=== PATIENT | male | born 1965 | race Caucasian/White ===

== ENCOUNTER 2023-02-19 07:21 | Day surgery (SDC) | payer BC ==
[2023-02-18 09:24] LABS: Potassium 3.9 mEq/L (3.5-5.1)
--- NOTE | 2023-02-18 13:36 | EKG ---
Test Date: 2023-02-18 Test Time: 08:51:13 Bit Setter: BALDO MEASUREMENT RESULTS: Intervals: Rate: 66 OR: 234 QRSD: 96 QT: 402 QTc: 421 [place]: P: 31 OR: 234 QRS: 117 T: 24 INTERPRETIVE STATEMENTS: Sinus rhythm with 1st degree AV block Low voltage QRS Incomplete right bundle branch block Left posterior fascicular block Abnormal ECG Compared to ECG 12/09/2016 17:57:30 Incomplete right bundle-branch block now present Left posterior fascicular block now present Right-axis deviation no longer present T-wave abnormality no longer present Electronically Signed On 02-18-23 13:35:23 CDT by Zachery Rizzo
[2023-02-19] MEDS ORDERED: NA CHLORIDE 0.9% 1,000 ML ONE (07:48)
[2023-02-19] MEDS ORDERED: propofoL 200 MG/20 ML VIAL IV ONE ×2 (07:56→07:57)
[2023-02-19] MEDS ORDERED: GLYCOPYRROLATE 0.2 MG/ML SYR ONE (07:57)
[2023-02-19] MEDS ORDERED: LIDOCAINE 1% MPF 30 ML VIAL ONE (07:57)
[2023-02-19 08:04] VITALS: TEMP 98.3
[2023-02-19 10:43] VITALS: BP 130/77; O2SAT 97
== END 2023-02-19 09:10 | disposition home or self-care (01) ==
LOC: OR 07:21
PROVIDERS: ATTEND Surgery
PROC: 0DBN8ZX Excision of Sigmoid Colon, Via Natural or Artificial Opening Endoscopic, Diagnostic (ICD-10-PCS; 2023-02-19)
PROC: 0DBM8ZX Excision of Descending Colon, Via Natural or Artificial Opening Endoscopic, Diagnostic (ICD-10-PCS; principal; 2023-02-19 09:00)
DX: Z12.11 Encounter for screening for malignant neoplasm of colon (principal); N42.9 Disorder of prostate, unspecified; K57.30 Diverticulosis of large intestine without perforation or abscess without bleeding; K64.8 Other hemorrhoids; D12.4 Benign neoplasm of descending colon; D12.5 Benign neoplasm of sigmoid colon
CPT/HCPCS: 45385; 93005; 80048; 36415; 82947; 88305 ×2; J2704 ×2; J2001; J7030

== ENCOUNTER 2024-03-26 05:47 | Emergency (ER) | payer BC ==
[2024-03-26] MEDS ORDERED: MORPHINE 4 MG/ML SYR ONE (06:30)
[2024-03-26] MEDS ORDERED: ONDANSETRON 4 MG/2 ML VIAL ONE (06:30)
[2024-03-26] MEDS ORDERED: NA CHLORIDE 0.9% 1,000 ML ONE (06:30)
[2024-03-26 06:40] LABS: Specific Gravity > 1.030 (1.005-1.030); Sqamous Epithelial <5 /HPF (None Seen); Urine Bacteria None Seen /HPF (<20); Urine Bilirubin NEGATIVE (Negative); Urine Blood 2+ (Negative); Urine Clarity Clear (Clear); Urine Color Light-Yellow (Yellow); Urine Culture Reflex Order NOT NEEDED; Urine Glucose 4+ (Over) (Negative); Urine Ketones NEGATIVE (Negative); Urine Microscopic Reflex YN ORDER UMIC; Urine Nitrite NEGATIVE (Negative); Urine Protein NEGATIVE (Negative); Urine Urobilinogen Normal (Normal); Urine WBC <5 /HPF (<5)
[2024-03-26 06:42] LABS: Absolute Eosinophils 0.1 K/uL (0-0.5); Absolute Lymphocytes (CBC) 1.5 K/uL (0.7-4.9); Absolute Monocytes 0.7 K/uL (0.1-1.3); Absolute Neutrophil 4.2 K/uL (1.8-8.0); Basophils % 0.4 % (0-1.3); Eosinophils % 2.1 % (0-4.4); Hematocrit 44.9 % (39.6-49.0); Hemoglobin 15.5 g/dL (13.6-17.9); Lymphocytes % 22.8 % (15.3-44.8); MCH 31.8 pg (27.0-35.0); MCHC 34.7 g/dL (32.0-36.0); MCV 91.7 fL (80-100); MPV 6.8 fL (7.6-11.3); Monocytes % 10.2 % (3.3-12.3); Neutrophils % 64.5 % (41.7-73.7); Nucleated Red Blood Cells % 0.1 % (0-0); Platelets 213 thou/uL (152-406); RBC Red Blood Cell Count 4.89 M/uL (4.33-5.43); Red Cell Distribution Width 14.3 % (12.1-15.2)
[2024-03-26 06:58] LABS: Albumin 3.8 g/dL (3.4-5.0); Anion Gap 11.6 mEq/L (5.0-15.0); Bilirubin Total 0.5 mg/dL (0.2-1.0); Potassium 3.6 mEq/L (3.5-5.1); Protein, Total 7.8 g/dL (6.4-8.2)
--- NOTE | 2024-03-26 07:21 | RAD REPORT ---
EXAMINATION: CT ABDOMEN AND PELVIS WITHOUT CONTRAST CLINICAL INDICATION: FLANK PAIN TECHNIQUE: CT abdomen and pelvis was performed, without IV contrast, as per department protocol. Axia l, sagittal and coronal reconstructions were obtained. One or more of the following dose reduction techniques were used: Automated exposure control, adjustment of the mA and kV according to the patien t size, and iterative reconstruction. Unless otherwise specified, incidental findings do not require dedicated imaging follow-up. COMPARISON: 12/09/2016 FINDINGS: The lack of intravenous contrast limits the sensitivity of this exam for evaluation of solid visceral organs, vascular structures, and retroperitoneum. LOWER CHEST: The visualized lung bases are clear. LIVER:Normal in size and contour. No focal lesion. Grossly unremarkable gallbladder. SPLEEN: Normal size. No focal lesion. PANCREAS: No mass, ductal dilation, or naida-pancreatic fluid. ADRENALS: Normal; no mass. KIDNEYS AND URETERS: 3 mm stone is present right UVJ resulting in mild right hydronephrosis. Addition al small calyceal calculi bilaterally. URINARY BLADDER: Normal contour. GASTROINTESTINAL TRACT: No evidence of bowel obstruction, significant free fluid, free air or abscess . Mild sigmoid diverticulosis coli. APPENDIX: Normal appendix. LYMPH NODES: No lymphadenopathy. MUSCULOSKELETAL: Calcified disc bulge L5-S1. ADDITIONAL FINDINGS: None. IMPRESSION: 3 mm stone right UVJ resulting in mild right hydronephrosis. Additional calyceal calculi in both kidneys.
--- NOTE | 2024-03-26 07:35 | ER ---
Nurse's Notes [facility] Name: Ramin Nix Age: 58 yrs Sex: Male : 1965 Arrival Date: 03/26/2024 Time: 05:47 Bed 16 Private MD: Diagnosis: Calculus of ureter Presentation: 03/26 06:08 Chief complaint: Patient states: right flank pain, nausea \T\ vomiting started around rg5 0415hrs, with HX of kidney stones. Coronavirus screen: Client denies travel out of the [place] in the last 14 days. Ebola Screen: Patient negative for fever greater than or equal to 101.5 degrees Fahrenheit, and additional compatible Ebola Virus Disease symptoms. Initial Sepsis Screen: Does the patient meet any 2 criteria? No. Patient's initial sepsis screen is negative. Does the patient have a suspected source of infection? No. Patient's initial sepsis screen is negative. Risk Assessment: Do you want to hurt yourself or someone else? Patient reports no desire to harm self or others. Onset of symptoms was March 26, 2024. 06:08 Method Of Arrival: Ambulatory rg5 06:08 Acuity: SHAHLA 3 rg5 Triage Assessment: 06:10 General: Appears in no apparent distress. Behavior is calm, cooperative, appropriate rg5 for age. Pain: Complains of pain in abdomen. Pain: Pain currently is 10 out of 10 on a pain scale. Quality of pain is described as aching, Pain began 2 hours ago. EENT: No deficits noted. Neuro: Level of Consciousness is awake, alert, obeys commands, Oriented to person, place, time. Cardiovascular: Heart tones S1 S2 Patient's skin is warm and dry. Respiratory: Airway is patent Trachea midline. GI: Abdomen is round Abd is soft and non tender Reports upper abdominal pain, nausea, vomiting. : No signs and/or symptoms were reported regarding the genitourinary system. Derm: Skin is intact, Skin is dry, Skin temperature is warm. Musculoskeletal: Circulation, motion, and sensation intact. Range of motion: intact in all extremities. Historical: - Allergies: 06:10 Medrol; rg5 06:10 Prednisone; rg5 06:10 Naproxen Sodium; rg5 - Home Meds: 06:10 aspirin 81 mg Oral chew 1 tab once daily [Active]; rg5 - PMHx: 06:10 Diabetes - NIDDM; Hypertension; connective tissue disease; rg5 - Immunization history:: Adult Immunizations up to date. - Infectious Disease History:: Denies. - Social history:: Smoking status: Patient denies any tobacco usage or history of. - Family history:: not pertinent. Screenin:10 [facility] ED Fall Risk Assessment (Adult) History of falling in the last 3 months, rg5 including since admission No falls in past 3 months (0 pts) Confusion or Disorientation No (0 pts) Intoxicated or Sedated No (0 pts) Impaired Gait No (0 pts) Mobility Assist Device Used No (0 pt) Altered Elimination No (0 pt) Score/Fall Risk Level 0 - 2 = Low Risk Oriented to surroundings, Maintained a safe environment, Hourly rounding (assess needs \T\ fall precautionary measures) done. Abuse screen: Denies threats or abuse. Nutritional screening: No deficits noted. Tuberculosis screening: No symptoms or risk factors identified. Assessment: 06:13 Reassessment: see triage assessment. rg5 07:57 Reassessment: Patient appears in no apparent distress at this time. Patient and/or ph family updated on plan of care and expected duration. Pain level reassessed. Patient is alert, oriented x 3, equal unlabored respirations, skin warm/dry/pink. Patient states feeling better. Vital Signs: 06:10 BP 153 / 84; Pulse 75; Resp 19; Temp 98(O); Pulse Ox 96% ; Weight 130.63 kg; Height 6 rg5 ft. 1 in. ; Pain 10/10; 07:57 BP 142 / 78; Pulse 72; Resp 18; Temp 97.6; Pulse Ox 98% on R/A; ph 06:10 Body Mass Index 38.00 (130.63 kg, 185.42 cm) rg5 06:10 Pain Scale: Adult rg5 ED Course: 05:50 Patient arrived in ED. gm2 05:50 Roc Lynn MD is Attending Physician. rt 06:00 Joe Adame, SAVANAH is Primary Nurse. rg5 06:10 Triage completed. rg5 06:10 Arm band placed on right wrist. rg5 06:10 Patient has correct armband on for positive identification. Bed in low position. Call rg5 light in reach. Side rails up X 1. Door closed. Noise minimized. Verbal reassurance given. 06:10 No provider procedures requiring assistance completed. Inserted saline lock: 20 gauge rg5 in left antecubital area, using aseptic technique. Blood collected. Flushed with 10 mL NS. 06:57 CT Abd/Pelvis - Without Contrast In Process Unspecified. EDMS 07:05 Attending Physician role handed off by Roc Lynn MD ec2 07:05 Zeb Olivares MD is Attending Physician. ec2 07:34 Toño Arce MD is Referral Physician. ec2 07:59 IV discontinued, intact, bleeding controlled, No redness/swelling at site. Pressure ph dressing applied. Administered Medications: 06:34 Drug: NS 0.9% IV 1000 ml IV at 1 bolus Per protocol; to be given as a bolus over 60 rg5 minutes Route: IV; Rate: 1 bolus; Site: left antecubital; 07:58 Follow up: Response: No adverse reaction; IV Status: Completed infusion; IV Intake: ph 1000ml 06:35 Drug: Ondansetron IVP 4 mg IVP once; over 2 minutes Route: IVP; Site: left antecubital; rg5 07:58 Follow up: Response: No adverse reaction ph 06:35 Drug: morphine IVP or IV 4 mg IVP once over 4 mins Route: IVP; Infused Over: 4 mins; rg5 Site: left antecubital; 07:59 Follow up: Response: No adverse reaction; Pain is decreased; RASS: Alert and Calm (0) ph 07:53 Drug: HYDROcodone-acetaminophen PO 5 mg-325 mg 1 tabs PO once Route: PO; ph 07:58 Follow up: Response: No adverse reaction; Medication administered at discharge. ph Medication: 06:10 VIS not applicable for this client. rg5 Intake: 07:58 IV: 1000ml; Total: 1000ml. ph Outcome: 07:34 Discharge ordered by . ec2 07:58 Discharged to home ambulatory, with significant other, ph 07:58 Condition: good 07:58 Discharge instructions given to patient, Instructed on discharge instructions, follow up and referral plans. medication usage, Demonstrated understanding of instructions, follow-up care, medications, Prescriptions given X 2, 07:59 Patient left the ED. ph Signatures: Dispatcher [facility] Naila Pedraza RN RN ph Roc Lynn MD MD rt Zeb Olivares MD MD ec2 Moni Delgado gm2 Joe Adame, RN RN rg5
--- NOTE | 2024-03-26 07:35 | EDPHYS ---
Physician Documentation [facility] Name: Ramin Nix Age: 58 yrs Sex: Male : 1965 Arrival Date: 03/26/2024 Time: 05:47 Bed 16 Private MD: ED Physician Zeb Olivares HPI: 03/26 06:51 This 58 yrs old Male presents to ER via Ambulatory with complaints of Possible Kidney rt Stone, Back Pain, Nausea/Vomiting. 06:51 Patient with previous history of kidney stone about 10 years ago presents to the ED rt with an acute onset of severe right flank pain about 2 hours prior to arrival rates the suprapubic region with associated nausea, vomiting. Denies other acute complaints at this time, symptoms are moderate in severity, no other aggravating or elevating factors.. Historical: - Allergies: 06:10 Medrol; rg5 06:10 Prednisone; rg5 06:10 Naproxen Sodium; rg5 - Home Meds: 06:10 aspirin 81 mg Oral chew 1 tab once daily [Active]; rg5 - PMHx: 06:10 Diabetes - NIDDM; Hypertension; connective tissue disease; rg5 - Immunization history:: Adult Immunizations up to date. - Infectious Disease History:: Denies. - Social history:: Smoking status: Patient denies any tobacco usage or history of. - Family history:: not pertinent. ROS: 06:51 Constitutional: Negative for fever, chills, and weight loss, Cardiovascular: Negative rt for chest pain, palpitations, and edema, Respiratory: Negative for shortness of breath, cough, wheezing, and pleuritic chest pain, MS/Extremity: Negative for injury and deformity, Skin: Negative for injury, rash, and discoloration, Neuro: Negative for headache, weakness, numbness, tingling, and seizure, 06:51 Abdomen/GI: Positive for nausea and vomiting, 06:51 Back: Positive for flank pain, Negative for injury or acute deformity, Exam: 06:51 Constitutional: This is a well developed, well nourished patient who is awake, alert, rt and in no acute distress. Head/Face: Normocephalic, atraumatic. Chest/axilla: Normal chest wall appearance and motion. Nontender with no deformity. No lesions are appreciated. Cardiovascular: Regular rate and rhythm with a normal S1 and S2. No gallops, murmurs, or rubs. Normal PMI, no JVD. No pulse deficits. Respiratory: Lungs have equal breath sounds bilaterally, clear to auscultation and percussion. No rales, rhonchi or wheezes noted. No increased work of breathing, no retractions or nasal flaring. Abdomen/GI: Soft, non-tender, with normal bowel sounds. No distension or tympany. No guarding or rebound. No evidence of tenderness throughout. MS/ Extremity: Pulses equal, no cyanosis. Neurovascular intact. Full, normal range of motion. Neuro: Awake and alert, GCS 15, oriented to person, place, time, and situation. Cranial nerves II-XII grossly intact. Motor strength 5/5 in all extremities. Sensory grossly intact. Cerebellar exam normal. Normal gait. Vital Signs: 06:10 BP 153 / 84; Pulse 75; Resp 19; Temp 98(O); Pulse Ox 96% ; Weight 130.63 kg; Height 6 rg5 ft. 1 in. ; Pain 10/10; 07:57 BP 142 / 78; Pulse 72; Resp 18; Temp 97.6; Pulse Ox 98% on R/A; ph 06:10 Body Mass Index 38.00 (130.63 kg, 185.42 cm) rg5 06:10 Pain Scale: Adult rg5 MDM: 06:09 Medical Screening Exam initiated rt 07:08 Data reviewed: vital signs, nurses notes. ED course: Patient signed out to me by ec2 previous physician, in brief arrives today for abdominal pain along with associated nausea and vomiting. Plan is to follow-up CT imaging. Lab work is unrevealing.. 07:37 ED course: CT imaging shows ureteral stone. Patient is well-appearing and nontoxic on ec2 reassessment. Will discharge home. Return precautions given.. 03/26 06:19 Order name: CBC with Diff; Complete Time: 07:00 rt 03/26 06:19 Order name: CMP; Complete Time: 07:00 rt 03/26 06:19 Order name: Lipase; Complete Time: 07:00 rt 03/26 06:19 Order name: Urinalysis w/ reflexes; Complete Time: 07:00 rt 03/26 06:19 Order name: CT Abd/Pelvis - Without Contrast; Complete Time: 07:32 rt 03/26 06:19 Order name: IV Saline Lock; Complete Time: 06:35 rt 03/26 06:19 Order name: Labs collected and sent; Complete Time: 06:35 rt Administered Medications: 06:34 Drug: NS 0.9% IV 1000 ml IV at 1 bolus Per protocol; to be given as a bolus over 60 rg5 minutes Route: IV; Rate: 1 bolus; Site: left antecubital; 07:58 Follow up: Response: No adverse reaction; IV Status: Completed infusion; IV Intake: ph 1000ml 06:35 Drug: Ondansetron IVP 4 mg IVP once; over 2 minutes Route: IVP; Site: left antecubital; rg5 07:58 Follow up: Response: No adverse reaction ph 06:35 Drug: morphine IVP or IV 4 mg IVP once over 4 mins Route: IVP; Infused Over: 4 mins; rg5 Site: left antecubital; 07:59 Follow up: Response: No adverse reaction; Pain is decreased; RASS: Alert and Calm (0) ph 07:53 Drug: HYDROcodone-acetaminophen PO 5 mg-325 mg 1 tabs PO once Route: PO; ph 07:58 Follow up: Response: No adverse reaction; Medication administered at discharge. ph Disposition Summary: 03/26/24 07:34 Discharge Ordered Notes: Location: Home ec2 Condition: Stable ec2 Diagnosis - Calculus of ureter ec2 Followup: ec2 - With: Toño Arce MD - When: - Reason: Recheck today's complaints Discharge Instructions: - Discharge Summary Sheet ec2 - Kidney Stones, [id number] ec2 Forms: - Medication Reconciliation Form ec2 - Antibiotic Education ec2 - Prescription Opioid Use ec2 - Patient Portal Instructions ec2 - Leadership Thank You Letter ec2 Prescriptions: - acetaminophen-codeine 300-30 mg Oral tablet - take 1 tablet ORAL route every 6 hours; 15 tablet; Refills: 0, Product ec2 Selection Permitted - tamsulosin 0.4 mg Oral capsule - take 1 capsule ORAL route every 24 hours; 14 capsule; Refills: 0, Product ec2 Selection Permitted Signatures: Dispatcher [employer] Naila Romero RN RN Roc Lynn MD MD rt Zeb Olivares MD MD ec2 Joe Adame RN RN rg5
[2024-03-26] MEDS ORDERED: HYDROCODONE/APAP 5/325 MG TAB ONE (07:41)
[2024-03-26 09:01] VITALS: BP 142/78; TEMP 97.6; O2SAT 98
== END 2024-03-26 07:59 | disposition home or self-care (01) ==
LOC: ER 05:47
DX: N20.1 Calculus of ureter (principal); Z79.82 Long term (current) use of aspirin
CPT/HCPCS: 96361; 85025; 81001; 36415; 83690; 80053; 74176; 96375; 96374; 99284; J2405; J7030